=== PATIENT | female | born 1960 | race Caucasian/White ===

== ENCOUNTER 2021-02-23 14:22 | Emergency (ER) | payer BC, OTHER ==
[~2021-02-23] VITALS: Ht 157.5 cm; Wt 81.7 kg
[2021-02-23] MEDS ORDERED: NORCO5 PO (16:20)
[2021-02-23] MEDS ORDERED: MEDROLDOSEPACK PO (16:20)
[2021-02-23] MEDS ORDERED: METHOCARBAMOL500 M2 PO (16:20)
[2021-02-23 16:29] VITALS: BP 151/81
== END 2021-02-23 16:30 | disposition home or self-care (01) ==
LOC: ER 14:22
DX: M54.32 Sciatica, left side (principal)